=== PATIENT | male | born 1990 | race Caucasian/White ===

== ENCOUNTER 2018-11-24 15:54 | Emergency (ER) | payer OTHER ==
[2018-11-24] MEDS ORDERED: HYDROcodone/Acetaminophen 10/325 mg Tablet ONE ×2 (16:11→19:41)
--- NOTE | 2018-11-24 16:55 | RAD ---
LEFT WRIST THREE VIEWS: INDICATIONS: Injury. Pain. FINDINGS: There is a displaced angulated fracture at the distal radius with dorsal tilt of the radial carpal ar ticulation. Mild comminution of the distal radial fracture site is present. There is an ulnar stylo id avulsion. Scattered osteoarthritis is present. There is prominent soft tissue swelling about the left wrist. IMPRESSION: 1. Comminuted displaced and angulated distal radial fracture with involvement of the articular surfa ce. 2. Ulnar styloid avulsion injury. Recommend orthopedic consultation. POS: [facility]
[2018-11-24] MEDS ORDERED: Lidocaine 1% (PF) 30 ML VIAL ONE (17:05)
[2018-11-24] MEDS ORDERED: KETAMINE 100 MG/ML (5ML VIAL) ONE (17:31)
[2018-11-24] MEDS ORDERED: Lorazepam 2 MG/ML VIAL ONE (17:31)
[2018-11-24] MEDS ORDERED: Ondansetron PF 4 MG/2 ML Vial ONE ×2 (18:07→18:28)
--- NOTE | 2018-11-24 18:37 | RAD ---
LEFT WRIST TWO VIEWS: INDICATIONS: Post reduction. FINDINGS: Interval placement of splint with improved alignment of distal radial fracture. Ulnar styloid avulsi on is again seen. IMPRESSION: 1. Status post reduction and splinting of distal radial fracture with improved alignment. 2. Ulnar styloid avulsion. POS: [facility]
== END 2018-11-24 19:40 | disposition still patient (30) ==
LOC: NAV ERS 15:54
DX: S52.502A Unspecified fracture of the lower end of left radius, initial encounter for closed fracture (principal); S52.612A Displaced fracture of left ulna styloid process, initial encounter for closed fracture; J45.909 Unspecified asthma, uncomplicated; X50.9XXA Other and unspecified overexertion or strenuous movements or postures, initial encounter; Y93.73 Activity, racquet and hand sports
CPT/HCPCS: 25605; 94760; 96361; 96374; 96375; 99152; J2001; J2060; J2405